=== PATIENT | male | born 1955 | race Caucasian/White ===

== ENCOUNTER 2025-01-21 07:20 | Day surgery (SDC) | payer MEDICARE, BC ==
[~2025-01-21 07:20] MED LIST: Ropivacaine 0.5% 5 MG/ML 30 ML SDV ONE; Sodium Chloride 0.9% 10 ML Syringe FLUSH PRN; Sodium Chloride 0.9% 10 ML Syringe FLUSH SCH; dexmedeTOMIDine HCl 200 MCG/2 ML SDV ONE; propofoL 500 MG/50 ML 50 ML ONE
[2025-01-21] MEDS ORDERED: Ondansetron 4 MG/2 ML SDV ONE (07:44)
[2025-01-21] MEDS: Lactated Ringers 1,000 ML IV SCH (08:00)
[2025-01-21] MEDS: EPINEPHrine 1 MG/ML SDV ONE (09:00)
[2025-01-21] MEDS ORDERED: Dexamethasone 4 MG/ML 5 ML MDV ONE (09:34)
[2025-01-21] MEDS ORDERED: Lactated Ringers 1,000 ML ONE (09:36)
[2025-01-21] MEDS ORDERED: Glycopyrrolate 0.2 MG/ML 2 ML SDV ONE (09:40)
[2025-01-21] MEDS ORDERED: Propofol 200 MG/20 ML SDV ONE (09:49)
[2025-01-21] MEDS ORDERED: Ondansetron 4 MG/2 ML SDV IVPUSH PRN (10:41)
[2025-01-21] MEDS ORDERED: fentaNYL 100 MCG/2 ML SDV IVPUSH PRN (10:41)
== END 2025-01-21 12:52 | disposition home or self-care (01) ==
LOC: JD.SDS 07:20
PROVIDERS: ATTEND Orthopaedic Surgery
DX: M75.21 Bicipital tendinitis, right shoulder (principal); M75.41 Impingement syndrome of right shoulder; I10 Essential (primary) hypertension; E78.5 Hyperlipidemia, unspecified; E03.9 Hypothyroidism, unspecified; Z91.09 Other allergy status, other than to drugs and biological substances; Z79.890 Hormone replacement therapy; Z79.899 Other long term (current) drug therapy
CPT/HCPCS: 29822; 29826; 64415; J0169; J0690; J1100; J1596; J2003; J2405; J2704; J2795; J7120; J3490